=== PATIENT | male | born 1990 | race Two or more races ===

== ENCOUNTER 2022-02-07 07:31 | Emergency (ER) | payer SELFPAY ==
--- NOTE | 2022-02-07 07:38 | ED.OVERDOSE ---
HPI - Overdose General Chief Complaint: Overdose Stated Complaint: od w/narcan given,good result Time Seen by Provider: 02/07/22 07:38 Source: patient Mode of arrival: EMS History of Present Illness HPI Narrative: Patient with history of substance abuse brought by EMS after they found him not responsive in his car used 2 bags prior to that was given 8 mg of Narcan by [facility] at this time patient alert oriented x3 refusing to stay in the ER refusing to get vitals done but per EMS patient was saturating 98% on room air Related Data Allergies Allergy/AdvReac Type Severity Reaction Status Date / Time No Known Allergies Allergy Verified 02/07/22 07:38 Review of Systems Review of Systems: Yes all other systems are reviewed and are negative PMFSH Social History Social History Advance Directives: No Physical Exam Vital Signs: Vital Signs: Last Vital Signs Temp 97.0 F 02/07/22 07:42 Pulse 90 02/07/22 07:42 Resp 16 02/07/22 07:42 BP 150/90 H 02/07/22 07:42 Pulse Ox 97 02/07/22 07:42 O2 Del Method 02/07/22 07:42 BMI result Body Mass Index 23.5 Appearance: Alert. Oriented X3. No acute distress. Eyes: PERRLA, No Nystagmus ENT: Pharynx normal. Oral Mucosa moist Neck: Normal inspection. Neck supple. CVS: Normal heart rate and rhythm. Pulses normal. Respiratory: No respiratory distress. Equal air entry bilateral, no wheezing/rales/rhonchi Abdomen: Soft and nontender. Bowel sounds are present, Skin: Skin warm and dry. Normal skin color. Normal skin turgor. Extremities: No lower extremity edema. No calf tenderness Neuro: Oriented X 3. No motor deficit. MDM - Overdose MDM Narrative Medical decision making narrative: Patient's substance abuse refusing to stay in the hospital for further evaluation of detox says that has a problem in his car he has to go there as soon as possible walked out of the ER with security was given Narcan to take home Discharge Plan Discharge Clinical Impression: Accidental opiate poisoning Patient Disposition: Elopement Interventions: ED Discharge Assessment Last Done: 02/07/22 08:23 Discharge Date/Time: 02/07/22 08:24
[2022-02-07 07:42] VITALS: BP 150/100; BP 150/90; PULSE 90; RESP 16; TEMP 36.1; O2SAT 97; BMI 23.5
[2022-02-07] MEDS: Naloxone HCl Nasal TAKE HOME 4 MG SPRAY NOSTRILALT (08:00)
--- NOTE | 2022-02-07 08:21 | PC.NURSE ---
PT AWAKE, ALERT AND ORIENTED X 3. REFUSING TO STAY IN ED. ALLOWED DR GRANT TO SPEAK WITH HIM. NARCAN 4MG TAKE HOME GIVEN TO PATIENT. DENIES SI/HI. STATES I JUST WANT TO GET BACK TO MY STUFF, I DON'T WANT TO STAY HERE PT AMBULATORY IN ED, GAIT STEADY
== END 2022-02-07 08:24 | disposition left against medical advice (07) ==
PROVIDERS: Emergency Provider Internal Medicine
DX: T40.1X1A Poisoning by heroin, accidental (unintentional), initial encounter (principal); Y92.9 Unspecified place or not applicable
CPT/HCPCS: 99282; 99283